=== PATIENT | female | born 1960 | race Hispanic/Latino ===

== ENCOUNTER 2017-08-12 10:00 | Outpatient (CLI) | payer BC | END 2017-08-12 10:01 | disposition home or self-care (01) | LOC: BICMAMMO 10:00 | PROVIDERS: ATTEND Obstetrics & Gynecology | DX: Z12.31 Encounter for screening mammogram for malignant neoplasm of breast (principal) | CPT/HCPCS: 77063; 77067 ==

== ENCOUNTER 2023-06-11 14:03 | Inpatient (IN) | payer BC, OTHER ==
[2023-06-11 14:51] LABS: #Basophils 0.04 10x3/uL (0.0-0.2); %Basophils 0.6 % (0.0-1.0); %Eosinophils 1.1 % (0.0-10.0); %Lymphocytes 24.5 % (21.0-51.0); %Monocytes 6.6 % (0.0-10.0); %Neutrophils 66.4 % (42.0-75.0); Hematocrit 21.8 % (36.0-47.0); Hemoglobin 5.7 g/dL (12.0-16.0); Mean Corpuscular HGB CONC 26.1 g/dL (32.0-36.0); Mean Corpuscular Hemoglobin 17.4 pg (27.0-31.0); Mean Corpuscular Volume 66.5 fL (78.0-98.0); Platelet Count 254 10x3/uL (130-400); RBC Distribution Width 22.9 % (11.5-14.5); Red Blood Cell (RBC) Count 3.28 mill/uL (4.20-5.40)
[2023-06-11 15:04] LABS: Anion Gap 10 mmol/L (10-20); Globulin 2.9 g/dL (2.4-3.5)
[2023-06-11 15:08] LABS: ALT (SGPT) 9 U/L (8-55); AST (SGOT) 16 U/L (5-34); Albumin 3.5 g/dL (3.4-4.8); Alkaline Phosphatase 61 U/L (40-110); BUN (Urea Nitrogen) 12 mg/dL (9.8-20.1); Bilirubin, Total 0.3 mg/dL (0.2-1.2); Calc. Creatinine Clearance 0 mL/min (70-130); Calcium 8.5 mg/dL (7.8-10.44); Carbon Dioxide 23 mmol/L (23-31); Chloride 111 mmol/L (98-107); Estimated GFR 99; Glucose 117 mg/dL (80-115); Potassium 3.4 mmol/L (3.5-5.1); Protein, Total 6.4 g/dL (5.8-8.1); Sodium 141 mmol/L (136-145)
[2023-06-11 15:20] LABS: Anisocytosis MODERATE=16-30 cells (100X) (0-5/hpf); Elliptocytes SLIGHT = 2-5 cells (100X) (0-1/hpf); Hypochromia SLIGHT = 6-15 cells (100X) (0-5/hpf); Large Platelets SLIGHT (None Seen); Microcytosis SLIGHT = 6-15 cells (100X) (0-5/hpf); Ovalocytes SLIGHT = 2-5 cells (100X) (0-1/hpf); Platelet Adequacy Comment Appears Adequate; Poikilocytosis SLIGHT = 6-15 cells (100X) (0-5/hpf); Polychromasia MODERATE = 3-4 cells (100X) (0-2/hpf); Schistocytes SLIGHT = 2-5 cells (100X) (0-1/hpf); Tear Drops SLIGHT = 2-5 cells (100X) (0-1/hpf)
[2023-06-11 16:06] LABS: INR-International Normal Ratio 1.1; PTT 32.7 sec (22.9-36.1); Prothrombin Time 13.7 sec (12.0-14.7)
[2023-06-11] MEDS ORDERED: Acetaminophen 325 MG TAB PO PRN (17:04)
[2023-06-11] MEDS ORDERED: Ondansetron ODT 4 MG TAB PO PRN (17:04)
[2023-06-11] MEDS ORDERED: Ondansetron PF 4 MG/2 ML Vial IVP PRN (17:04)
[2023-06-11 18:37] VITALS: BMI 31.6
[2023-06-11 19:03] LABS: Iron 22 ug/dL (50-170); Iron Binding Capacity, Total 466 mcg/dL (265-497)
[2023-06-11] MEDS: Pantoprazole DR 40 MG TAB PO SCH (19:19)
[2023-06-12 05:12] LABS: #Basophils 0.06 10x3/uL (0.0-0.2); %Eosinophils 1.6 % (0.0-10.0); %Monocytes 7.4 % (0.0-10.0); %Neutrophils 60.7 % (42.0-75.0); Hematocrit 27.8 % (36.0-47.0); Hemoglobin 8.2 g/dL (12.0-16.0); Mean Corpuscular HGB CONC 29.5 g/dL (32.0-36.0); Mean Corpuscular Hemoglobin 20.2 pg (27.0-31.0); Mean Corpuscular Volume 68.6 fL (78.0-98.0); Platelet Count 216 10x3/uL (130-400); RBC Distribution Width 25.3 % (11.5-14.5); Red Blood Cell (RBC) Count 4.05 mill/uL (4.20-5.40)
[2023-06-12 05:24] LABS: Anion Gap 7 mmol/L (10-20)
[2023-06-12 05:27] LABS: BUN (Urea Nitrogen) 10 mg/dL (9.8-20.1); Calc. Creatinine Clearance 117 mL/min (70-130); Calcium 8.3 mg/dL (7.8-10.44); Carbon Dioxide 23 mmol/L (23-31); Chloride 111 mmol/L (98-107); Estimated GFR 100; Glucose 92 mg/dL (80-115); Potassium 3.8 mmol/L (3.5-5.1); Sodium 137 mmol/L (136-145)
[2023-06-12] MEDS ORDERED: Ferrous Sulfate 325 MG TAB PO SCH (08:00)
[2023-06-12] MEDS: Sertraline 100 MG TAB PO SCH (09:33)
[2023-06-12] MEDS: Pantoprazole DR 40 MG TAB PO SCH (09:33)
[2023-06-12] MEDS: Sodium Ferric Gluconate 250 MG in Sodium Chloride 0.9% 250 ML 250 ML IVPB SCH (09:33)
[2023-06-12] MEDS ORDERED: Polyethylene Glycol 3350 17 GM Packet PO PRN (09:39)
[2023-06-12] MEDS: Pantoprazole 40 MG VIAL IVP SCH ×2 (11:01→20:12)
[2023-06-12] MEDS: GoLYTELY 4,000 ml Bottle PO SCH (17:03)
[2023-06-12] MEDS: Multivit, Therapeutic 1 TAB PO SCH (20:11)
[2023-06-12] MEDS: Cyanocobalamin (Vitamin B-12) 1,000 MCG TAB PO SCH (20:12)
[2023-06-12] MEDS: Folic Acid 1 MG TAB PO SCH (20:12)
[2023-06-13 06:20] LABS: #Basophils 0.06 10x3/uL (0.0-0.2); %Basophils 0.9 % (0.0-1.0); %Eosinophils 1.6 % (0.0-10.0); %Lymphocytes 23.2 % (21.0-51.0); %Monocytes 8.2 % (0.0-10.0); %Neutrophils 65.6 % (42.0-75.0); Hematocrit 27.3 % (36.0-47.0); Hemoglobin 7.9 g/dL (12.0-16.0); Mean Corpuscular HGB CONC 28.9 g/dL (32.0-36.0); Mean Corpuscular Hemoglobin 20.4 pg (27.0-31.0); Mean Corpuscular Volume 70.5 fL (78.0-98.0); Platelet Count 216 10x3/uL (130-400); RBC Distribution Width 26.2 % (11.5-14.5); Red Blood Cell (RBC) Count 3.87 mill/uL (4.20-5.40)
[2023-06-13 06:24] LABS: Anion Gap 11 mmol/L (10-20)
[2023-06-13 06:28] LABS: BUN (Urea Nitrogen) 7 mg/dL (9.8-20.1); Calc. Creatinine Clearance 110 mL/min (70-130); Calcium 8.5 mg/dL (7.8-10.44); Carbon Dioxide 27 mmol/L (23-31); Chloride 110 mmol/L (98-107); Estimated GFR 99; Glucose 81 mg/dL (80-115); Magnesium 2.3 mg/dL (1.6-2.6); Potassium 3.8 mmol/L (3.5-5.1); Sodium 144 mmol/L (136-145)
[2023-06-13 08:39] VITALS: BP 168/66; TEMP 98.4
[2023-06-13] MEDS ORDERED: Enoxaparin 40 MG (0.4 mL) SYRINGE SC SCH (09:00)
[2023-06-13] MEDS ORDERED: PROPOFOL 60 ML ONE (15:31)
[2023-06-13] MEDS ORDERED: Lidocaine 2% PF 5 ML VIAL ONE (15:32)
[2023-06-13] MEDS ORDERED: Ondansetron HCl/PF 4 MG/2 ML Vial IVP PRN (16:02)
[2023-06-13] MEDS ORDERED: Promethazine HCl 25 MG/ML VIAL IM PRN (16:02)
[2023-06-13] MEDS ORDERED: Morphine Sulfate 2 MG/ML SYRINGE SLOW IVP PRN (16:02)
[2023-06-13] MEDS: Sodium Ferric Gluconate 250 MG in Sodium Chloride 0.9% 250 ML 250 ML IVPB SCH (17:25)
[2023-06-14] MEDS ORDERED: Pantoprazole DR 40 MG TAB PO SCH (09:00)
== END 2023-06-13 19:50 | disposition home or self-care (01) | DRG 379 ==
LOC: ERS 14:03 → T4-A 16:19 → OBSVTOIN 06-13 12:07
PROVIDERS: ADMIT Internal Medicine; ATTEND Internal Medicine
PROC: 0DB98ZX Excision of Duodenum, Via Natural or Artificial Opening Endoscopic, Diagnostic (ICD-10-PCS; principal; 2023-06-13)
PROC: 0DB68ZX Excision of Stomach, Via Natural or Artificial Opening Endoscopic, Diagnostic (ICD-10-PCS; 2023-06-13)
PROC: 0DJD8ZZ Inspection of Lower Intestinal Tract, Via Natural or Artificial Opening Endoscopic (ICD-10-PCS; 2023-06-13)
PROC: 30233N1 Transfusion of Nonautologous Red Blood Cells into Peripheral Vein, Percutaneous Approach (ICD-10-PCS; 2023-06-13)
DX: K29.71 Gastritis, unspecified, with bleeding (principal); D50.9 Iron deficiency anemia, unspecified; F41.9 Anxiety disorder, unspecified; Z79.899 Other long term (current) drug therapy; Z90.49 Acquired absence of other specified parts of digestive tract; Z82.49 Family history of ischemic heart disease and other diseases of the circulatory system; E66.9 Obesity, unspecified; Z68.31 Body mass index [BMI] 31.0-31.9, adult; E87.6 Hypokalemia; K44.9 Diaphragmatic hernia without obstruction or gangrene
CPT/HCPCS: 36415; 36430; 80048; 80053; 80061; 82306; 82607; 82728; 83540; 83550; 83735; 84443; 85025; 85046; 85610; 85730; 86850; 86900; 86901; 88305; 96374; 96375; 96376; 99285; C9113; G0378; J2001; J2704; J2916; J7050; P9016

== ENCOUNTER 2024-03-22 11:23 | Observation (INO) | payer BC ==
[~2024-03-22 11:23] MED LIST: Iopamidol-370 76% 500 ML MDV (1 ML CHARGE) ONE
[2024-03-22] MEDS ORDERED: Dexamethasone 10 MG/ML VIAL ONE (12:08)
[2024-03-22] MEDS ORDERED: Meclizine HCl 25 MG TAB ONE (12:08)
[2024-03-22 12:10] LABS: #Basophils 0.03 10x3/uL (0.0-0.2); %Basophils 0.6 % (0.0-1.0); %Eosinophils 2.4 % (0.0-10.0); %Lymphocytes 24.4 % (21.0-51.0); %Monocytes 6.7 % (0.0-10.0); %Neutrophils 65.9 % (42.0-75.0); Hematocrit 40.3 % (36.0-47.0); Hemoglobin 13.4 g/dL (12.0-16.0); Mean Corpuscular HGB CONC 33.3 g/dL (32.0-36.0); Mean Corpuscular Hemoglobin 29.7 pg (27.0-31.0); Mean Corpuscular Volume 89.4 fL (78.0-98.0); Mean Platelet Volume 11.9 fL (7.4-10.4); Platelet Count 208 10x3/uL (130-400); Red Blood Cell (RBC) Count 4.51 mill/uL (4.20-5.40)
[2024-03-22] MEDS ORDERED: Ondansetron PF 4 MG/2 ML Vial ONE (12:12)
[2024-03-22 12:40] LABS: ALT (SGPT) 17 U/L (Less than 34); AST (SGOT) 41 U/L (11-34); Albumin 3.8 g/dL (3.1-4.5); Alkaline Phosphatase 72 U/L (40-110); Anion Gap 14 mmol/L (10-20); BUN (Urea Nitrogen) 13 mg/dL (9.8-20.1); Bilirubin, Total 0.4 mg/dL (0.3-1.2); Calc. Creatinine Clearance 0 mL/min (70-130); Calcium 8.9 mg/dL (7.8-10.44); Carbon Dioxide 22 mmol/L (23-31); Chloride 107 mmol/L (98-107); Estimated GFR 103; Globulin 3.7 g/dL (2.4-3.5); Glucose 94 mg/dL (80-115); Magnesium 2.3 mg/dL (1.6-2.6); Potassium 4.5 mmol/L (3.5-5.1); Protein, Total 7.5 g/dL (5.8-8.1); Sodium 138 mmol/L (136-145)
[2024-03-22] MEDS ORDERED: Aspirin Chewable 81 MG TAB ONE (15:05)
[2024-03-22] MEDS ORDERED: LORazepam 2 MG/ML SYR.(CARPUJECT) ONE (15:06)
[2024-03-22] MEDS ORDERED: Ondansetron PF 4 MG/2 ML Vial IVP PRN (15:15)
[2024-03-22] MEDS ORDERED: Acetaminophen 325 MG TAB PO PRN (15:15)
[2024-03-22] MEDS ORDERED: Bisacodyl 5 MG TAB PO PRN (15:15)
[2024-03-22] MEDS: Atorvastatin Calcium 40 MG TAB PO SCH (23:17)
[2024-03-22] MEDS: Folic Acid 1 MG TAB PO SCH (23:17)
[2024-03-22 23:47] VITALS: BMI 33.2
[2024-03-23 05:14] LABS: #Basophils Less than 0.03 10x3/uL (0.0-0.2); #Eosinophils Less than 0.03 10x3/uL (0.0-0.7); %Basophils 0.1 % (0.0-1.0); %Lymphocytes 10.5 % (21.0-51.0); %Neutrophils 84.1 % (42.0-75.0); Hematocrit 39.1 % (36.0-47.0); Hemoglobin 12.7 g/dL (12.0-16.0); Mean Corpuscular HGB CONC 32.5 g/dL (32.0-36.0); Mean Corpuscular Hemoglobin 29.1 pg (27.0-31.0); Mean Corpuscular Volume 89.5 fL (78.0-98.0); Mean Platelet Volume 12.3 fL (7.4-10.4); Platelet Count 198 10x3/uL (130-400); RBC Distribution Width 12.9 % (11.5-14.5); Red Blood Cell (RBC) Count 4.37 mill/uL (4.20-5.40)
[2024-03-23 05:27] LABS: Anion Gap 11 mmol/L (10-20); BUN (Urea Nitrogen) 17 mg/dL (9.8-20.1); Calc. Creatinine Clearance 127 mL/min (70-130); Calcium 8.6 mg/dL (7.8-10.44); Carbon Dioxide 25 mmol/L (23-31); Cardiac Risk 4.6 (Less than 4.5); Chloride 106 mmol/L (98-107); Cholesterol 188 mg/dl (< 200 Desired); Estimated GFR 101; Glucose 131 mg/dL (80-115); HDL Cholesterol 41 mg/dL (>60 Neg Risk); LDL Cholesterol, Calculated 121 mg/dL; Potassium 4.2 mmol/L (3.5-5.1); Sodium 138 mmol/L (136-145); Triglycerides 132 mg/dL (Less than 150)
[2024-03-23 08:59] VITALS: BMI 33.2
[2024-03-23] MEDS ORDERED: Cosyntropin 250 MCG VIAL SLOW IVP SCH (09:00)
[2024-03-23] MEDS: Pantoprazole 40 MG DR.TAB PO SCH (10:12)
[2024-03-23] MEDS: Aspirin 81 mg Enteric Coated Tablet PO SCH (10:12)
[2024-03-23] MEDS: FLU (Fluarix Triv) TS24-25(6MOS UP)/PF 45 MCG/0.5 ML Syringe IM ONE (11:35)
[2024-03-23 15:44] VITALS: BP 134/75; TEMP 98.4
== END 2024-03-23 18:07 | disposition home or self-care (01) ==
LOC: ERS 11:23 → ERHOLD 14:46 → 2SE 20:26
PROVIDERS: ADMIT Internal Medicine; ATTEND Hospitalist
DX: R42 Dizziness and giddiness (principal); K21.9 Gastro-esophageal reflux disease without esophagitis; F41.9 Anxiety disorder, unspecified; Z90.49 Acquired absence of other specified parts of digestive tract; Z79.899 Other long term (current) drug therapy
CPT/HCPCS: 36415; 70496; 70498; 70551; 71045; 80048; 80053; 80061; 83735; 84443; 85025; 93005; 93306; 93880; 96374; 96375; G0378; J1100; J2060; J2405; Q9967

== ENCOUNTER 2024-04-07 09:42 | Outpatient (CLI) | payer BC | END 2024-04-07 09:43 | disposition home or self-care (01) | LOC: BICULT 09:42 | PROVIDERS: ATTEND Family Medicine | DX: E04.1 Nontoxic single thyroid nodule (principal) | CPT/HCPCS: 76536 ==